=== PATIENT | male | born 2000 | race Caucasian/White ===

== ENCOUNTER 2018-07-07 12:47 | Emergency (ER) | payer OTHER | END 2018-07-07 13:19 | disposition home or self-care (01) | LOC: M ED 12:47 | DX: D22.9 Melanocytic nevi, unspecified (principal) | CPT/HCPCS: 99282 ==

== ENCOUNTER → 2019-02-13 | Outpatient (REF) | payer OTHER ==
[~2019-02-13] MED LIST: CYCL5TAB; GABA-1171
[2019-02-13 14:18] LABS: SEMEN APPEARANCE OPAQUE (OPAQUE); SEMEN VISCOSITY LIQUID (LIQUID); SEMEN VOLUME 1.2 ml (4.0-5.0); SEMEN pH 8.5 (7.0-8.0); SPERM CONCENTRATION 19.8 M/ml (>=15.0); WBC CONCENTRATION >1 M/ml (<=1 M/ml)
== END ==
LOC: M LAB REF 14:14
PROVIDERS: ATTEND Physician Assistant
DX: N46.9 Male infertility, unspecified (principal)

== ENCOUNTER 2019-02-17 10:44 | Emergency (ER) | payer OTHER ==
[~2019-02-17] VITALS: Ht 182.9 cm; Wt 86.4 kg
[2019-02-17] MEDS ORDERED: CYCL5TAB (11:09)
[2019-02-17] MEDS ORDERED: GABA-1171 (11:09)
[2019-02-17 12:48] LABS: BLOOD UREA NITROGEN 17 MG/DL (7-18); CALCIUM LEVEL 9.1 MG/DL (8.5-10.1); CARBON DIOXIDE LEVEL 28 MEQ/L (21-32); CHLORIDE LEVEL 107 MEQ/L (98-107); CREATININE FOR GFR 0.81 MG/DL (0.70-1.30); GLUCOSE, FASTING 80 MG/DL (70-100); POTASSIUM SERUM 4.5 MEQ/L (3.5-5.1); SODIUM LEVEL 139 MEQ/L (136-145)
[2019-02-17 13:41] LABS: THYROID STIMULATING HORMONE 0.992 uIU/ML (0.463-3.98)
[2019-02-17 14:06] VITALS: BP 132/78
--- NOTE | 2019-02-17 14:08 | REP ---
Abdominal right upper quadrant ultrasound for right upper quadrant pain. There is no cholelithiasis, gallbladder wall thickening or pericholecystic fluid. There is no intrahepatic or extrahepatic biliary duct dilatation. The common biliary duct measures 4.8 mm in diameter. The hepatic parenchyma is homogeneous and otherwise unremarkable. The visualized areas of the pancreas are unremarkable. Portions of the pancreas are obscured by bowel gas. There is no right renal calculus, hydronephrosis or solid or cystic mass. The right kidney is normal size measuring 12.0 x 5.0 x 4.4 cm. Impression: Essentially negative right upper quadrant abdominal ultrasound. Electronically Signed by Lonnie Hemphill MD 02/17/2019 01:59 P
== END 2019-02-17 14:11 | disposition home or self-care (01) ==
LOC: M ED 10:44
DX: R63.1 Polydipsia (principal); Z79.899 Other long term (current) drug therapy

== ENCOUNTER 2019-05-04 07:30 | Outpatient (RCR) | payer OTHER | END 2019-05-07 | LOC: M PT 07:30 | PROVIDERS: ATTEND Otolaryngology | DX: M26.69 Other specified disorders of temporomandibular joint (principal) ==

== ENCOUNTER 2019-05-09 08:14 | Outpatient (RCR) | payer OTHER | END 2019-06-07 | LOC: M PT 08:14 | DX: Z51.89 Encounter for other specified aftercare (principal); M26.609 Unspecified temporomandibular joint disorder, unspecified side ==